=== PATIENT | female | born 1965 | race Caucasian/White ===

== ENCOUNTER 2021-12-23 09:28 | Outpatient (CLI) | payer OTHER, SELFPAY ==
[2021-12-23 14:43] LABS: Chloride* 107 mmol/L (96-114)
[2021-12-23 14:44] LABS: Albumin* 4.5 g/dL (3.3-5.0); Potassium* 4.5 mmol/L (3.6-5.1); Sodium* 141 mmol/L (135-149)
[2021-12-23 14:46] LABS: Carbon Dioxide* 28 mmol/L (20-32); Cholesterol* 250 mg/dL (90-199); Creatinine* 0.8 mg/dL (0.5-1.5); Estimated Glomerular Filt Rate 85 ml/min; Total Protein* 6.7 g/dL (6.0-8.3)
[2021-12-23 14:47] LABS: Alanine Aminotransferase* 14 U/L (4-35); Alkaline Phosphatase* 77 U/L (40-150); Aspartate Amino Transferase* 19 U/L (12-35); Bilirubin Total* 0.9 mg/dL (0.1-1.5); Blood Urea Nitrogen* 12 mg/dL (7-30); Calcium* 9.7 mg/dL (8.4-10.6); Glucose* 95 mg/dL (60-115); Triglycerides* 129 mg/dL (40-149)
[2021-12-23 14:48] LABS: HDL Cholesterol* 60 mg/dL (>=50); LDL Cholesterol Calculated 164 mg/dL (<100)
== END 2021-12-23 09:29 | disposition home or self-care (01) ==
PROVIDERS: PCP Physician Assistant Medical; Visit Provider Physician Assistant Medical
DX: Z00.00 Encounter for general adult medical examination without abnormal findings (principal); I10 Essential (primary) hypertension; Z13.6 Encounter for screening for cardiovascular disorders
CPT/HCPCS: 80053; 80061; 84443; 87086

== ENCOUNTER 2022-04-11 11:48 | Outpatient (CLI) | payer OTHER, SELFPAY | END 2022-04-11 11:49 | disposition home or self-care (01) | PROVIDERS: PCP Physician Assistant Medical; Visit Provider Physician Assistant Medical | DX: E78.5 Hyperlipidemia, unspecified (principal); I10 Essential (primary) hypertension | CPT/HCPCS: 80053; 80061 ==

== ENCOUNTER 2022-04-19 15:54 | Outpatient (CLI) | payer OTHER, SELFPAY ==
--- NOTE | 2022-04-19 16:00 | CRLHL7_ITS ---
For Patients: As a result of the Century Cures Act, medical imaging exams and procedure reports are released immediately into your electronic medical record. You may view this report before your referring provider. If you have questions, please contact your health care provider. INDICATION: Lung cancer screening. History of smoking. High risk patient with greater than 35 pack-year smoking history. TECHNIQUE: Low-dose lung cancer screening non-contrast CT chest. Dose reduction techniques were used. COMPARISON: None. FINDINGS: NODULES: 2 millimeter nodule right upper lobe, . Pleural-based density posterior left upper lobe, 04/27. LUNGS AND PLEURA: Mild scarring in both lung apices extending to the pleura. Paraseptal emphysema. MEDIASTINUM: No adenopathy. CORONARY ARTERY CALCIFICATION: Mild. LIMITED UPPER ABDOMEN: Normal. MUSCULOSKELETAL: Normal. IMPRESSION: Negative for lung cancer screening purposes. LUNG-RADS CATEGORY: 2: Benign. RADIOLOGIST RECOMMENDATION: Continue annual screening with low-dose CT chest in 12 months. Please note that all CT scans at this facility use dose modulation, iterative reconstruction, and/or weight-based dosing when appropriate to reduce radiation dose to as low as reasonably achievable. Dictated by Trenton Ceja MD @ 04/21/2022 12:00:48 PM (Electronically Signed)
== END 2022-04-19 15:55 | disposition home or self-care (01) ==
LOC: CT 15:54
PROVIDERS: PCP Physician Assistant Medical; Visit Provider Physician Assistant Medical
DX: Z12.2 Encounter for screening for malignant neoplasm of respiratory organs (principal); Z72.0 Tobacco use
CPT/HCPCS: 71271

== ENCOUNTER 2023-01-17 18:28 | Emergency (ER) | payer OTHER, SELFPAY ==
[2023-01-17 18:52] VITALS: BP 140/82; PULSE 85; RESP 17; TEMP 37.4; O2SAT 97; BMI 27.9
--- NOTE | 2023-01-17 19:09 | CRLHL7_ITS ---
For Patients: As a result of the Cures Act, medical imaging exams and procedure reports are released immediately into your electronic medical record. You may view this report before your referring provider. If you have questions, please contact your health care provider. Indication: Fall. Technique: Three views of the left wrist. Comparison: None Findings/Impression: Mildly displaced transverse fracture of the distal radial metaphysis, with mild impaction. There is a small displaced osseous fragment dorsally seen on lateral view. There is extension of the fracture into the radiocarpal joint. Possible additional nondisplaced fracture at the mid scaphoid as well. Dictated by Levar Ram MD @ 01/17/2023 7:44:54 PM (Electronically Signed)
--- NOTE | 2023-01-17 19:10 | ED.FALL ---
HPI - Fall General Chief Complaint: Fall/Minor Trauma Stated Complaint: fell, arm pain, abdominal pain Time Seen by Provider: 01/17/23 18:42 History of Present Illness HPI Narrative: This 57-year-old female comes in for evaluation of an injury that occurred a couple hours prior to arrival. She states that she was getting out of a tub and slipped falling onto her left side. She landed on her left forearm and wrist and complains of some pain and swelling in this area. She also has some mild discomfort of her left lower anterior lateral ribs where her arm was tucked in when she fell. She does not report any shortness of breath. She does not have any abdominal pain. She did not hit her head or report any other injury. Related Data Home Medications Medication Instructions Recorded Confirmed calcium carbonate 600 mg-vitamin cap PO 08/26/21 04/11/22 D3 12.5 mcg (500 unit) capsule (Calcium 600 with Vitamin D3) cholecalciferol (vitamin D3) 125 125 mcg PO QDAY 08/26/21 04/11/22 mcg (5,000 unit) capsule Previous Rx's Medication Instructions Recorded lisinopril 10 1 tab PO QDAY #90 tabs 03/25/22 mg-hydrochlorothiazide 12.5 mg tablet atorvastatin 20 mg tablet 20 mg PO QDAY #90 tabs 05/24/22 Allergies Allergy/AdvReac Type Severity Reaction Status Date / Time No Known Drug Allergies Allergy Verified 05/12/22 11:33 Review of Systems Status of ROS: Reports: 10 or more systems reviewed and unremarkable except as noted in History and below Narrative: Constitutional: No fevers, no weight gain or loss. Eyes: No discharge. No vision changes. HENT: No congestion, no sore throat, no ear pain. Cardiovascular: No chest pain, no palpitations. Respiratory: No shortness of breath, no wheezes, no cough. Gastrointestinal: No abdominal pain, no vomiting, no diarrhea. Genitourinary: No dysuria, no hematuria. Musculoskeletal: Left wrist and distal forearm pain as described above. Skin: No rashes, no pruritis. Neurological: No dizziness, weakness, sensory change, speech change. Endo/Heme/Allergies: No bruising or bleeding. No polydipsia. Pysch: no suicidality, no anxiety, no insomnia. All other systems reviewed and are negative. [facility] Medical History (Updated 01/17/23 @ 20:04 by Yandel Ocampo MD) Skin lesion of right ear ?H61.91 - Disorder of right external ear, unspecified (ICD-10) Surgical History (Updated 11/11/21 @ 07:40 by Kelly Escobar) S/P ORIF (open reduction internal fixation) fracture (09/23/20) ?Z98.890 - Other specified postprocedural states (ICD-10) ?Z87.81 - Personal history of (healed) traumatic fracture (ICD-10) History of toe surgery ?Z98.890 - Other specified postprocedural states (ICD-10) History of spinal surgery ?Z98.890 - Other specified postprocedural states (ICD-10) History of hysterectomy ?Z90.710 - Acquired absence of both cervix and uterus (ICD-10) Social History Smoking Status: Current some day smoker Exam Narrative: Exam Narrative: Constitutional: Well-developed, well-nourished, no acute distress. HEENT: Normocephalic, atraumatic. Neck: Normal range of motion. Nontender. Supple. Heart: Regular. No murmurs. Normal rate. Intact distal pulses. Lungs: Clear to auscultation. No wheezes, rhonchi, or rales. Chest: Mild tenderness in the left lateral anterior lower ribs when palpating in this area. Abdomen: Normal bowel sounds. Nontender. No rebound tenderness. No tenderness when palpating over the spleen or when percussing over the left flank where the kidney is. Genitalia: Deferred. Back: No midline tenderness. Normal range of motion. Extremities: Normal range of motion. No injury. Skin: Intact. No rash. Warm. No erythema or pallor. Neurologic: No altered sensation. No weakness. Alert and oriented. Psychiatric: No suicidality. No anxiety or depression. No insomnia. Nursing notes and vitals signs are reviewed. Const: Vital Signs, click to edit/add: Vital Signs - 24 hr 01/17/23 18:52 Temperature 99.3 F Pulse Rate [Pulse Oximeter] 85 Respiratory Rate 17 Blood Pressure [Ri ght Upper Arm] 140/82 H Pulse Oximetry 97 Oxygen Delivery Me thod Room Air Course Vital Signs Vital signs: Initial Vital Signs Temperature 99.3 F 01/17/23 18:52 Temperature Source Temporal Artery Scan 01/17/23 18:52 Pulse Rate 85 01/17/23 18:52 Respiratory Rate 17 01/17/23 18:52 Blood Pressure 140/82 H 01/17/23 18:52 Blood Pressure Mean 101 01/17/23 18:52 Pulse Oximetry 97 01/17/23 18:52 Oxygen Delivery Method Room Air 01/17/23 18:52 Vital Signs Temperature 99.3 F 01/17/23 18:52 Pulse Rate 85 01/17/23 18:52 Respiratory Rate 17 01/17/23 18:52 Blood Pressure 140/82 H 01/17/23 18:52 Pulse Oximetry 97 01/17/23 18:52 Oxygen Delivery Method Room Air 01/17/23 18:52 Temperature 99.3 F 01/17/23 18:52 Pulse Rate 85 01/17/23 18:52 Respiratory Rate 17 01/17/23 18:52 Blood Pressure 140/82 H 01/17/23 18:52 Pulse Oximetry 97 01/17/23 18:52 Oxygen Delivery Method Room Air 01/17/23 18:52 MDM - Fall MDM Narrative Medical decision making narrative: This patient comes in with an injury to her left wrist and also has some pain in the left lower anterior ribs. I did discuss x-ray imaging of her ribs but there is reassurance with a normal abdominal exam and normal vital signs with normal lung sounds. The patient declined to x-ray of her ribs but an x-ray of her left wrist was obtained. This returns if evidence of a distal wrist fracture which is impacted slightly but in good position otherwise. The patient did receive a rib belt and was also placed in a volar splint using Ortho Glass material. She is instructed to follow-up with orthopedic clinic. She did receive a prescription for Toradol through the [employer] machine. Imaging Data XR R Wrist: Radiologist's impression: Mildly displaced transverse fracture of the distal radial metaphysis, with mild impaction. There is a small displaced osseous fragment dorsally seen on lateral view. There is extension of the fracture into the radiocarpal joint. Possible additional nondisplaced fracture at the mid scaphoid as well. Discharge Plan Discharge Clinical Impression: Fracture of wrist, Contusion of rib Patient Disposition: Home, Self-Care Condition: Stable Additional Instructions: Wear rib belt and wrist splint. Follow-up with orthopedic clinic. Call [phone] for appointment. Take medication also as needed and directed for pain. Follow up with MD otherwise as needed. Prescriptions: No Action cholecalciferol (vitamin D3) 125 mcg (5,000 unit) capsule 125 mcg PO QDAY calcium carbonate-vitamin D3 [Calcium 600 with Vitamin D3] 600 mg-12.5 mcg (500 unit) capsule PO lisinopril-hydrochlorothiazide 10-12.5 mg tablet 1 tab PO QDAY Qty: 90 0RF Rx Instructions: once daily for blood pressure atorvastatin 20 mg tablet 20 mg PO QDAY Qty: 90 3RF Rx Instructions: one tablet daily for cholesterol recheck fasting labs in 3 months Follow Up/Referrals: Enid Dallas PA-C [Primary Care Provider] - Stand Alone Forms: [facility] Info Instructions
[2023-01-17 20:08] VITALS: BP 155/80; PULSE 84; RESP 20; O2SAT 95
== END 2023-01-17 20:16 | disposition home or self-care (01) ==
PROVIDERS: Emergency Provider Emergency Medicine Emergency Medical Services; PCP Physician Assistant Medical
DX: S62.102A Fracture of unspecified carpal bone, left wrist, initial encounter for closed fracture (principal); S20.212A Contusion of left front wall of thorax, initial encounter; W19.XXXA Unspecified fall, initial encounter
CPT/HCPCS: 29125; 73110; 99283; 99284

== ENCOUNTER 2023-03-09 09:30 | Outpatient (RCR) | payer OTHER, SELFPAY ==
--- NOTE | 2023-02-23 11:29 | OT.OPOE ---
OT Outpatient Ortho Eval OT Outpatient Ortho Eval* Start: 02/23/23 09:36 Freq: Status: Active Protocol: Document 02/23/23 09:37 JERSON (Rec: 02/23/23 11:25 JERSON [id number]) E-signed By Belén Adame, OTR/L, CLT OT OP Ortho Eval Details Complexity Complexity Low Insurance Information Insurance Information [facility] Outpatient History/Precautions Current Condition/Medical Diagnosis Referring Provider Fabrice Barker PA-C Treatment Diagnosis Stiffness of L wrist/hand & Pain in L wrist Date of Onset 01/17/2023 Other Precautions Short-arm cast removed without complications on 02/21/23. Per provider's note, fracture is healing uneventfully. Some mild impaction, now ulnar neutral. This ulnar neutral position should not affect her in the future with ADLs. While the fracture is still present, it is healing and there is enough stability and bone mineralization in order for patient to transition from cast to wrist brace. She is fitted with Tubigrip and short arm wrist brace. Encouraged to wear this brace for the next 1 month (until the Mar) with all activities; come out of the brace for eating, bathing and sedentary activities. May come out of the brace when performing gentle wrist motion exercises. She should wear the brace during sleep for at least the next 2 weeks (Feb). Would still advise no heavy lifting with the left upper extremity greater than 5 lb. No firm grasping, push, pull. Medical/Functional History Medical History Reviewed Yes Prior Level of Function/Mobility Fully Indep with all self cares and IADLs, works a multimedia production assistant job Social History Current Occupation Works from home: employeer is [employer] Subjective Subjective Subjective I really didn't want to need surgery so I may be babying my hand/wrist slightly I got this wrist brace at my ortho f/u apt with Fabrice on Monday Pain Assessment Pain Present Pain Present Pain Reported Location Left Wrist Description Dull, Achy,Throbbing Intensity 2 Goniometric Comments Goniometric Comments Goniometric Comments L Wrist AROM: Flexion 34?, extension 24?, 65? pronation and supination Hand Pinch/Roll Icer Machine Strength Hand Right Roll Icer Machine Strength Position 1 (lbs) 60 Roll Icer Machine Strength Position 2 (lbs) 65 Lateral Pinch Strength (lbs) 19 Three Point Pinch (lbs) 16 Left Roll Icer Machine Strength Position 1 (lbs) 27 Roll Icer Machine Strength Position 2 (lbs) 35 Lateral Pinch Strength (lbs) 16 Three Point Pinch (lbs) 5 OT Objective Data Observations/Posture/Limb Appearance Objective Observations Firm swelling on the extensor side of the L forearm Sensation Sensation Assessment Summary Comments No reported tingling/numbness/ burning Sensation is intact to light touch, pressure, hot/cold OT Problems Problems Problems Decreased Strength,Decreased Range of Motion,Decreased Dexterity,Pain,Decreased Coordination,Lifting,Gripping, Pinching Other Problems Dressing,Computer Patient Potential Excellent Assessment Assessment Assessment 57-year-old (R hand dominant) female presents to the clinic with referral from Ortho PA after coming out of her short arm cast that was removed at f /u Ortho visit on 02/21/23. Medical dx: S52.502A unspecified fracture of the lower end of the left radius, initial encounter for closed fracture. Chief complaint is stiffness in the forearm, with localized edema present, pain rated at 2/10. Therapist has reviewed x-ray report and provider's note from visit on 02/21/23: COPIED FROM CHART Short-arm cast removed without complications on 02/21/23. Per provider's note, fracture is healing uneventfully. Some mild impaction, now ulnar neutral. This ulnar neutral position should not affect her in the future with ADLs. While the fracture is still present, it is healing and there is enough stability and bone mineralization in order for patient to transition from cast to wrist brace. She is fitted with Tubigrip and short arm wrist brace. Encouraged to wear this brace for the next 1 month (until the Mar) with all activities; come out of the brace for eating, bathing and sedentary activities. May come out of the brace when performing gentle wrist motion exercises. She should wear the brace during sleep for at least the next 2 weeks (Feb). Would still advise no heavy lifting with the left upper extremity greater than 5 lb. No firm grasping, push, pull. Provided patient with a HEP and reviewed Occupational Therapy Treatment Plan - OP Potential Rehabilitation Potential Excellent Barriers Barriers to goal attainment None Noted Set Goals Goals Set with Patient Yes Goals Goals 1. Through activity participation in skilled therapy sessions, and consistency in performing a customized HEP, patient will improve capacity of tendons and muscles to manage load in order to have less pain with ADLs, work, leisure activities and IADLs. 2. Patient will wean from wearing the Left hand/wrist braces as prescribed by PA/ Ortho Team as scheduled w/o increased pain levels in the L hand/wrist. 3. Patient will increase L hand riprap man strength from 27 lbs to >40 lbs in order to return to everyday tasks w/o fear of dropping items 4. Patient will gain AROM in the L wrist (EVAL L Wrist AROM : Flexion 34?, extension 24?, 65? pronation and supination. Target Date 8 weeks Treatment Plan Treatment Plan Evaluation,Edema Control,Joint Mobilization,Manual Therapy, Ultrasound,Therapeutic Exercise,Self Care/Home Management,Education Expected Frequency 1-2x Week Expected Duration 8-10 Weeks Home Program Home Program Home Program Initiated Home Program Specifics Tendon Glides AROM of the hand/wrist/forearm and elbow Recertification Information Recertification Information Initial Certification Date 02/23/23 Recertification Due Date 05/24/23 Click To Default 'Per treatment plan' Per treatment plan Continued Plan of Care and Interventions Per treatment plan Provider Signature Shows Agreement With POC & Medical Necessity Physician Comment/Change Comment or Changes Physician NPI Number #
== END 2023-03-09 10:16 | disposition home or self-care (01) ==
PROVIDERS: PCP Physician Assistant Medical; Visit Provider Physician Assistant Surgical
DX: S52.502A Unspecified fracture of the lower end of left radius, initial encounter for closed fracture (principal); M25.632 Stiffness of left wrist, not elsewhere classified; M25.532 Pain in left wrist; Z51.89 Encounter for other specified aftercare
CPT/HCPCS: 97110; 97165; X5282

== ENCOUNTER 2023-04-24 10:47 | Outpatient (CLI) | payer OTHER, SELFPAY ==
--- NOTE | 2023-04-24 11:00 | CT_ITS ---
Patient: LEVY CASAS Facility:?[facility] Patient ID:?[id number] Site Patient ID:?[id number]. Site :?[id number] Study:?CT-Chest LUNG SCREENING LOW DOSE-04/24/2023 11:02:39 AM Ordering Physician:Jose Chacko Final Report: INDICATION: Lung cancer screening. History of smoking. High risk patient with greater than 20 pack-year smoking history. TECHNIQUE: Low-dose lung cancer screening non-contrast CT chest. Dose reduction techniques were used. COMPARISON: 04/19/2022 FINDINGS: NODULES: Stable tiny subpleural nodular densities associated with the fissures. LUNGS AND PLEURA: Emphysema. Subpleural scarring at both lung apices. MEDIASTINUM: The thyroid is heterogeneous, as before. Mild vascular calcifications. No adenopathy. CORONARY ARTERY CALCIFICATION: Mild. LIMITED UPPER ABDOMEN: Unremarkable. MUSCULOSKELETAL: Normal. IMPRESSION: Negative for lung cancer screening purposes. LUNG-RADS CATEGORY: 2: Benign. RADIOLOGIST RECOMMENDATION: Continue annual screening with low-dose CT chest in 12 months. Please note that all CT scans at this facility use dose modulation, iterative reconstruction, and/or weight-based dosing when appropriate to reduce radiation dose to as low as reasonably achievable. Dictated by Trenton Ceja MD @ 04/24/2023 11:23:28 AM Signed by:?Trenton Ceja MD @04/24/2023 11:23:28 AM (Electronic Signature)
== END 2023-04-24 10:48 | disposition home or self-care (01) ==
LOC: CT 10:48
PROVIDERS: PCP Physician Assistant Medical; Visit Provider Physician Assistant Medical
DX: Z12.2 Encounter for screening for malignant neoplasm of respiratory organs (principal); Z72.0 Tobacco use
CPT/HCPCS: 71271

== ENCOUNTER 2023-07-12 08:49 | Outpatient (CLI) | payer OTHER, SELFPAY | END 2023-07-12 08:50 | disposition home or self-care (01) | LOC: NFLDREF 07-16 11:06 | PROVIDERS: PCP Physician Assistant Medical; Referring Provider Physician Assistant Medical; Visit Provider Physician Assistant Medical | DX: E78.5 Hyperlipidemia, unspecified (principal); I10 Essential (primary) hypertension; M35.3 Polymyalgia rheumatica; Z13.29 Encounter for screening for other suspected endocrine disorder | CPT/HCPCS: 80053; 80061; 84443 ==

== ENCOUNTER 2024-01-05 08:28 | Outpatient (CLI) | payer OTHER, SELFPAY ==
[2024-01-05 11:43] LABS: Bacterial Vaginosis* Negative (Negative); Candida glab/krus NOT DETECTED (No Detected); Candida species NOT DETECTED (No Detected); Trichomonas vaginalis NOT DETECTED (No Detected)
== END 2024-01-05 08:29 | disposition home or self-care (01) ==
PROVIDERS: PCP Physician Assistant Medical; Visit Provider Obstetrics & Gynecology
DX: N89.8 Other specified noninflammatory disorders of vagina (principal)
CPT/HCPCS: 81513; 87481; 87661

== ENCOUNTER 2024-04-15 11:36 | Outpatient (CLI) | payer OTHER, SELFPAY ==
[2024-04-15 19:58] LABS: Chlamydia DNA Amplified* NOT DETECTED (No Detected); GC DNA Amplified* NOT DETECTED (No Detected)
[2024-04-18 09:39] LABS: HPV Source Cervix; HPV, High Risk by TMA Not Detected
== END 2024-04-15 11:37 | disposition home or self-care (01) ==
PROVIDERS: PCP Physician Assistant Medical; Visit Provider Physician Assistant Medical
DX: N39.0 Urinary tract infection, site not specified (principal); N88.9 Noninflammatory disorder of cervix uteri, unspecified; Z11.3 Encounter for screening for infections with a predominantly sexual mode of transmission; Z11.51 Encounter for screening for human papillomavirus (HPV); Z12.4 Encounter for screening for malignant neoplasm of cervix; B96.1 Klebsiella pneumoniae [K. pneumoniae] as the cause of diseases classified elsewhere
CPT/HCPCS: 87086; 87491; 87591; 87624; 87625; 88141; 88142

== ENCOUNTER 2024-04-17 13:46 | Outpatient (CLI) | payer OTHER, SELFPAY ==
--- NOTE | 2024-04-17 14:00 | CRLHL7_ITS ---
For Patients: As a result of the Century Cures Act, medical imaging exams and procedure reports are released immediately into your electronic medical record. You may view this report before your referring provider. If you have questions, please contact your health care provider. INDICATION: Vaginal bleeding COMPARISON: none TECHNIQUE: 2D lance scale and color Doppler images were acquired of the pelvis using a transabdominal and transvaginal approach. FINDINGS: The uterus is absent. Hyperechoic structure associated with the cervix measuring 5 millimeters. The right ovary measures 3.0 x 1.5 x 2.3 cm in size and the left ovary measures 2.5 x 1.4 x 1.5 cm. The ovaries demonstrate normal arterial and venous blood flow on color Doppler analysis. There are no suspicious fluid collections within the cul-de-sac. Incidental calcification left ovary measures 6 x 3 x 8 millimeters. IMPRESSION: Indeterminate 5 millimeter hyperechoic structure associated with the cervix, possible polyp. Dictated by Trenton Ceja MD @ 04/17/2024 5:58:13 PM (Electronically Signed)
== END 2024-04-17 13:47 | disposition home or self-care (01) ==
LOC: US 13:46
PROVIDERS: PCP Physician Assistant Medical; Visit Provider Physician Assistant Medical
DX: N93.9 Abnormal uterine and vaginal bleeding, unspecified (principal); N88.9 Noninflammatory disorder of cervix uteri, unspecified
CPT/HCPCS: 76830; 76856

== ENCOUNTER 2024-07-02 09:11 | Outpatient (CLI) | payer OTHER, SELFPAY | END 2024-07-02 09:12 | disposition home or self-care (01) | LOC: NFLDREF 07-09 07:10 | PROVIDERS: PCP Physician Assistant Medical; Referring Provider Physician Assistant Medical; Visit Provider Physician Assistant Medical | DX: Z01.818 Encounter for other preprocedural examination (principal); I10 Essential (primary) hypertension; E78.5 Hyperlipidemia, unspecified; R82.90 Unspecified abnormal findings in urine | CPT/HCPCS: 80053; 80061; 87086 ==

== ENCOUNTER 2024-07-05 07:29 | Day surgery (SDC) | payer OTHER, SELFPAY ==
[2024-07-05] VITALS (23 sets, daily range): BP systolic 117–163; BP diastolic 59–97; PULSE 62–98; RESP 12–21; TEMP 36.1–37.2; O2SAT 87–100; BMI 35.5
[2024-07-05] MEDS: LACTATED RINGERS 1000 ML 1,000 ML 100 ML IV ×2 (08:12→10:29)
[2024-07-05] MEDS: SODIUM CHLORIDE 0.9 % (FLUSH) 10 ML SYRINGE IVF (08:12)
[2024-07-05 08:13] LABS: Hemoglobin* 14.5 gm/dL (12.0-16.0)
[2024-07-05 08:38] LABS: Creatinine* 0.9 mg/dL (0.5-1.5); Est. Creatinine Clearance* 57.45; Estimated Glomerular Filt Rate 73 ml/min
--- NOTE | 2024-07-05 08:53 | W.PM.H&PU ---
History & Physical Update History & Physical Update H&P Updates: Patient had a wonderful time in [facility] for her 40th anniversary. Started on Lisinopril at her preop visit. Improvement in BP noted. We reviewed intended procedure, risk/benefits and alternatives. Our main goal is the removal of her cervix as it is causing her abnormal bleeding. My goal is to complete the surgery vaginally. However, she might require a laparoscopic or open approach depending on how much adhesions her noted. Will perform opportunistic bilateral salpingo oophorectomy if feasible and safe or if structures are abnormal appearing. She understands that that I will not convert to laparoscopic or open to perform these. Patient verbalized that is her preference as well. All questions answered to her satisfaction and the best of my ability. Desires to proceed with surgical management.
[2024-07-05] MEDS: CEFAZOLIN 2 GM INJ IVP (09:36)
[2024-07-05] MEDS: LIDOCAINE 1%-EPI 1:100,000 20 ML INFILTRATI (10:10)
[2024-07-05] MEDS: KETOROLAC 30 MG/ML inj IVP (10:39)
--- NOTE | 2024-07-05 10:52 | P.ANES_ITS ---
Anesthesia Charges Start Date/Time Anesthesia Start Date: 07/05/24 Anesthesia Start Time: 09:07 Stop Date/Time Anesthesia Stop Date: 07/05/24 Anesthesia Stop Time: 10:52 Coding CPT Codes CPT Codes: ANESTH VAGINAL PROCEDURES - 45910 ([id number]) P2 - PATIENT W/MILD SYST DISEASE, QK - WAREHOUSE TRAINER 2-4 CNCRNT ANES PROC, QX - EQUINE SCIENCE INSTRUCTOR SVC W/ MD MED DIRECTION
--- NOTE | 2024-07-05 10:52 | W.ANESCHARGE ---
Anesthesia Charges Start Date/Time Anesthesia Start Date: 07/05/24 Anesthesia Start Time: 09:07 Stop Date/Time Anesthesia Stop Date: 07/05/24 Anesthesia Stop Time: 10:52 Coding CPT Codes CPT Codes: ANESTH VAGINAL PROCEDURES - 60913 ([id number]) P2 - PATIENT W/MILD SYST DISEASE, QK - SURVEILLANCE SPECIALIST 2-4 CNCRNT ANES PROC, QX - FELTING MACHINE OPERATOR SVC W/ MD MED DIRECTION
--- NOTE | 2024-07-05 11:20 | P.ANES_ITS ---
Anesthesia Charges Start Date/Time Anesthesia Start Date: 07/05/24 Anesthesia Start Time: 09:07 Stop Date/Time Anesthesia Stop Date: 07/05/24 Anesthesia Stop Time: 10:52 Coding CPT Codes CPT Codes: ANESTH VAGINAL PROCEDURES - 30070 ([id number]) P2 - PATIENT W/MILD SYST DISEASE, QK - GUIDEMAN 2-4 CNCRNT ANES PROC, QX - RELIEF MAP MODELER SVC W/ MD MED DIRECTION
--- NOTE | 2024-07-05 11:20 | W.ANESCHARGE ---
Anesthesia Charges Start Date/Time Anesthesia Start Date: 07/05/24 Anesthesia Start Time: 09:07 Stop Date/Time Anesthesia Stop Date: 07/05/24 Anesthesia Stop Time: 10:52 Coding CPT Codes CPT Codes: ANESTH VAGINAL PROCEDURES - 42162 ([id number]) P2 - PATIENT W/MILD SYST DISEASE, QK - INDUSTRIAL HEALTH ENGINEER 2-4 CNCRNT ANES PROC, QX - ROLLER MAN SVC W/ MD MED DIRECTION
--- NOTE | 2024-07-05 11:23 | PM.GYNPRHY ---
Procedure Type of Hysterectomy: Vaginal Pre-op/Post-op diagnoses: Pre-Op/Post-Op Diagnoses Operation Date: 07/05/24 08:45 <No data on this case meets the specified criteria> Procedure: Procedures Operation Date: 07/05/24 08:45 Actual Procedure Side Surgeon p M/S-Vaginal Trachelectomy, Cystoscopy Not Applicable Freya Fuentes MD Fleet Technician: Denise Rodriguez Estimated blood loss (mL): 20 Anesthesia Type: General and Local Complications: none Fluids: crystalloid Fluid amount (mL): 1,400 Urine output (mL): 20 Specimen: other (Cervix) Narrative: PREOPERATIVE DIAGNOSIS: Abnormal vaginal bleeding with history of supracervical hysterectomy POSTOPERATIVE DIAGNOSIS: Abnormal vaginal bleeding with history of supracervical hysterectomy NAME OF PROCEDURE: Vaginal trachelectomy, cystoscopy SURGEON: Freya Fuentes MD LEGAL CONTRACTS SPECIALIST: Denise Rodriguez MD SECOND PATIENT SERVICE REPRESENTATIVE: DMITRI Don ANESTHESIA: General endotracheal, local. COMPLICATIONS: None ESTIMATED BLOOD LOSS: 20 mL IV FLUID: 1400 mL URINE OUTPUT: 550 mL clear urine at the end of the procedure DRAINS: Martinez to gravity. SPECIMEN: Cervix FINDINGS: Exam under anesthesia: Mons normal, clitoris normal, urethral meatus normal. Labia minora and majora normal in appearance bilaterally. Perineum and anus normal appearance. Vaginal introitus normal appearance and of small caliper. Vaginal pink with mild atrophy and scant white discharge. Cervix pink and without lesion. Bimanual exam reveals small retained cervix, mobile. No palpable adnexal masses, although exam limited due to habitus. Rectal exam was normal and confirmed contour of the cervix. Mild adhesions of epiploica to anterior cervix and feel teetered to anterior abdominal wall. Cystoscopy: The dome of the bladder was noted to be without defect and no evidence of any sutures from the vaginal cuff causing injury. Ecchymosis noted at midline - no suture material noted, not active bleeding or defect. Normal urine flow was noted through both ureteral orifices. PROCEDURE: Patient was taken to the operating room with IV running. She received 2 g cefazolin in preoperative prophylaxis. She was positioned on the operating table in dorsal lithotomy position. She was prepped and draped in the usual sterile fashion. Martinez catheter was inserted. Exam under anesthesia revealed the above-noted findings. The anterior and posterior lips of the cervix were grasped with thyroid liliam. The cervicovaginal junction was infiltrated with dilute 1%lidocaine with epinephrine. Cervicovaginal junction was circumferentially incised with a scalpel. The vaginal epithelium was dissected off the uterosacral ligaments with a combination of blunt and sharp dissection bilaterally. Posterior colpotomy was performed sharply and a long weighted speculum was placed in the cul-de-sac. No adhesions noted in the posterior cul-de-sac. Small amount of filmy omental adhesions palpated anteriorly. Released easily with blunt dissection. I was able to wrap a digit around anteriorly to creat a plan for anterior colpotomy. The anterior colpotomy was performed by making an incision with electrocautery on my digit. A Reform was placed between the uterus and bladder. Ureter palpated long pelvic sideway and away from descending cervix. Bilateral uterosacral ligaments were clamped, cut, and suture ligated 0-vicryl, and tagged for later identification. This freed the cervix from its attachments and it was delivered through the vagina. Bilateral ovary and fallopian tubes were visualized higher up intra-abdominally. All normal appearing with surrounding mild adhesions to the pelvic side wall. Discussed with patient pre-operative that I would only removal her fallopian tubes and ovaries if readily accessible or if they appear abnormal. Thus, decision was made to leave bilateral fallopian tubes and ovaries. Hemostasis confirmed at bilateral pedicles. Attention was then turned to closing the vaginal cuff. The vaginal cuff was re-approximated using 0 Vicryl sutures in a figure of X manner vertically. The uterosacral pedicles were incorporated into each apex of the vaginal cuff. Excellent hemostasis was noted. The Martinez catheter was briefly removed. A diagnostic cystoscopy was performed using normal saline as the insufflation medium. Findings noted from above. Fluorescein IV was given intraoperatively to visualize the urine more easily. Martinez catheter was then replaced to be retained until removal on POD#1. The procedure was deemed complete, and the Martinez catheter was replaced. The patient tolerated the procedure well. Sponge, lap and instrument counts were correct x2 at the end of the procedure. The patient was taken to recovery area in stable condition Surgical debrief performed and specimen reviewed.
[2024-07-05] MEDS: IBUPROFEN 600 MG TABLET PO ×2 (15:59→22:36)
--- NOTE | 2024-07-05 18:16 | PC.NURSE ---
Addendum entered by Wander Malone RN 07/06/24 07:42: Martinez pulled 1900 on 07/05 Original Note: Patient arrived to the floor from post-op tired and sedated. Vitals have been being taken per protocol. Low oxygenation at start. Raising the head of their bed and frequent spirometer use has helped. Reports no pain, numbness, or tingling. Able to move legs weakly at first arrival. After an hour on the unit she awoke into her normal self and was able to move fully. Now able to drink and eat well and ambulate to the toilet with stand by assistance. ?Martinez in place producing clear yellow urine. Staying overnight.?
[2024-07-05] MEDS: OXYCODONE 5 MG TABLET PO (23:49)
[2024-07-06] MEDS: oxyBUTYnin chloride 5 MG TABLET 10 MG PO (01:06)
[2024-07-06 02:29] VITALS: BP 153/76; PULSE 84; RESP 17; TEMP 37; O2SAT 93
[2024-07-06] MEDS: OXYCODONE 5 MG TABLET PO (04:21)
[2024-07-06] MEDS: IBUPROFEN 600 MG TABLET PO ×2 (04:21→10:03)
[2024-07-06 06:22] LABS: Hemoglobin* 12.6 gm/dL (12.0-16.0)
[2024-07-06 06:40] LABS: Creatinine* 0.9 mg/dL (0.5-1.5); Est. Creatinine Clearance* 57.45; Estimated Glomerular Filt Rate 73 ml/min
--- NOTE | 2024-07-06 07:41 | PC.NURSE ---
Per previous nurse the hagen was removed at change of this shift. Patient was bladder scanned at 2300 as she had not voided since that time. Pt had 210mL of urine in bladder per scanner. Patient?voided 75mL at 2330.?Pt reported pain rated 6/10 and describes it as an intense feeling like she has to pee. She reports that she was having this pain earlier when catheter was in and had requested it be removed due to the discomfort as she thought it would relieve it. Dr Nicole called and updated regarding urine output and pain. Pt given a one time dose of Oxybutynin 10mg and hagen catheter placed at that time per MD orders. 275cc of clear yellow urine was drained at time of insertion.?No change in pain intensity after insertion.?C/O discomfort with catheter insertion. Given scheduled Ibuprofen and PRN Oxycodone this shift for pain. Had a small emesis. Reports this am that her nausea is better and rates pain 5/10.?
[2024-07-06 08:00] VITALS: PULSE 91; RESP 16
[2024-07-06 08:05] VITALS: BP 131/63; PULSE 91; RESP 16; TEMP 36.9; O2SAT 92
--- NOTE | 2024-07-06 09:43 | P.DS_ITS ---
DS: Providers Provider Time Seen by Provider: 09:30 Date Seen: 07/06/24 Primary care physician: Charlene Chacko PA-C Attending Physician on discharge: Freya Fuentes MD Date of Discharge: 07/06/24 DS: Diagnosis Discharge Diagnosis (1) Postmenopausal bleeding: Status: Acute (2) Cervical polyp: Status: Acute (3) Lesion of cervix: Status: Acute Problem details: ~ 3 o'clock position ( thickening on exam), easily bleeds REGIONAL OPERATIONS DIRECTOR-Discharge Summary Hospital Course Hospital Course Narrative: Patient is a 59 year old admitted on 07/05/24 for scheduled surgery. Vaginal Trachelectomy, Cystoscopy Indication for surgery: Continue abnormal bleeding s/p supracervical hysterectomy. Intraoperative findings: Exam under anesthesia: Mons normal, clitoris normal, urethral meatus normal. Labia minora and majora normal in appearance bilaterally. Perineum and anus norm al appearance. Vaginal introitus normal appearance and of small caliper. Vaginal pink with mild atrophy and scant white discharge. Cervix pink and without lesion. Bimanual exam reveals small retained cervix, mobile. No palpable adnexal masses, although exam limited due to habitus. Rectal exam was normal and confirmed contour of the cervix. Mild adhesions of epiploica to anterior cervix and feel teetered to anterior abdominal wall. Normal appearing bilateral fallopian tubes and ovaries. Cystoscopy: The dome of the bladder was noted to be without defect and no evidence of any sutures from the vaginal cuff causing injury. Ecchymosis noted at midline - no suture material noted, not active bleeding or defect. Normal urine flow was noted through both ureteral orifices. She had an uncomplicated surgery. Patient had an episode of bladder spasm last and urinary retention last night that was treated with Oxybutynin 10mg and martinez catheter reinsertion. She woke up this morning with complete resolution of bladder pain. She passed her voiding trial by voiding 300 cc completely. Denies any hematuria or dysuria. UOP adequate and clear all night. Martinez cath remained removed. Vitals have been stable. She has remained afebrile. Today, on postoperative day 1, she reports the pain is well controlled. Currently 0/10. She has been able to ambulate Without difficulty. She is bill ating regular diet. She is passing flatus. Still having liquid stool from bowel prep. Reports light vaginal bleeding last night and thing this morning. Time Spent with Patient Time attestation: Total time spent providing and/or coordinating discharge services: Time spent: Less than 30 minutes REGIONAL OPERATIONS DIRECTOR - Exam Physical Exam: Vital signs: Temp Pulse Resp BP Pulse Ox O2 Del Method O2 Flow Rate 98.4 F 91 16 131/63 92 Room Air 6 07/06/24 08:05 07/06/24 08:05 07/06/24 08:05 07/06/24 08:05 07/06/24 08:05 07/06/24 08:05 07/05/24 11:30 Narrative: Physical exam: General: No acute distress Psych: Alert and oriented x4, full affect HEENT: Normocephalic, atraumatic Heart: Regular rate and rhythm, no murmur rub or gallop Lungs: Clear to auscultation bilaterally Abdomen: Soft, no tenderness, rebound, or guarding Lower extremities: No edema or erythema Pelvic exam: No blood on pad REGIONAL OPERATIONS DIRECTOR - DS: Data Data Completed and Pending Labs on day of discharge: Labs from last 24 hours 07/06/24 07/05/24 05:58 08:06 Hgb 12.6 Creatinine 0.9 Estimated Creat Clear 57.45 Estimated GFR 73 Blood Type O Positive Antibody Screen NEGATIVE Procedures Procedures: Procedures Operation Date: 07/05/24 08:45 Actual Procedure Side Surgeon p M/S-Vaginal Trachelectomy, Cystoscopy Not Applicable Freya Fuentes MD Complications: none Discharge Plan Discharge Disposition: Home w/ Parent or Adult Discharging Surgeon: Freya Fuentes Follow-Up Appointment: With Dr. Fuentes on 07/19/24 @ 1330 Prescriptions: New acetaminophen 500 mg Tablet 1,000 mg PO Q6H PRN30 Days Qty: 30 0RF ibuprofen 600 mg Tablet 600 mg PO Q6H PRN (Reason: Abdominal Pain) 30 Days Qty: 30 0RF oxycodone 5 mg tablet 5 mg PO Q6H PRN (Reason: pain) Qty: 10 0RF Continued cholecalciferol (vitamin D3) 125 mcg (5,000 unit) capsule 125 mcg PO DAILY calcium carbonate-vitamin D3 [Calcium 600 with Vitamin D3] 600 mg-12.5 mcg (500 unit) capsule 1 cap PO DAILY prednisone 5 mg tablet 5 mg PO DAILY Actemra 162 mg/0.9 mL syringe 162 mg subcut Q7D atorvastatin 20 mg tablet 20 mg PO DAILY Rx Instructions: one tablet daily for cholesterol lisinopril 10 mg tablet 10 mg PO DAILY Patient Instructions: Acetaminophen (By mouth), Ibuprofen (By mouth), Oxycodone, Slow Release (By mouth) Additional Instructions: POSTOPERATIVE INSTRUCTIONS ACTIVITY Walking is encouraged, even if it is just short distances. Try to walk up to 6 times during the day. You may climb stairs as tolerated, but not for exercise. If you have a lengthy trip home after surgery, for 5 minutes or so every hour. To not participate strenuous activities, such as aerobic exercise. No heavy lifting/pushing/pulling for 4-6 weeks. Do not lift anything more than about 15 lbs (such as laundry, groceries, children, pets), vacuum, push heavy doors or grocery carts, etc. Do not put anything in the vagina for 6-8 weeks after surgery unless otherwise instructed by your doctor (including tampons, douching, sexual intercourse, etc). No driving for about 2 weeks after surgery, while you are taking narcotic pain medication, or until you feel that you are ready. Practice checking your blind spot and stepping hard on the brake. Avoid sitting or lying in bed for more than 2 hours at a time while you are awake to reduce your risk of blood clots. You may return to work when directed by your physician. Please contact your doctor if you need any return to work letters or medical leave paperwork to be completed. WOUND CARE You have a vaginal incision inside your vagina. These are dissolvable stitches and do not need to be removed. Shower daily after surgery. No tub baths until wound is completely healed. Do not use hot tub, whirlpool or go swimming unless otherwise instructed by your health care provider. PAIN MANAGEMENT Take your oral pain medication as needed. You should be taking Ibuprofen 600mg every 6 hours with 1000 mg of Tylenol every 6 hours. You can take these together every six hours or alternate them every 3 hours. You should then take the oxycodone as needed if you have breakthrough pain on top of the Tylenol and Ibuprofen. Some pain medications can cause constipation so you should take a stool softener (i.e. colace/senna) while you are on these medications. You may also take milk of magnesia or Miralax for constipation. AP take narcotic medications for pain, do not: Obiee Report Developer operate motorized vehicles/equipment, drink alcoholic beverages, make important decision or sign legal documents. WHAT TO EXPECT AT HOME Recovery from surgery is generally 2-4 weeks, but sometimes longer for more strenuous activity. It is normal to be very tired during this time. It is normal to have some drainage or a small amount of vaginal bleeding after surgery which may last up to 8 weeks. You will most likely experience gas pain, abdominal swelling, or shoulder pain for 24-72 hours after surgery. A warm shower, heating pad, and/or walking may help. WHEN TO CALL YOUR DOCTOR : Fever (>100.4?F or 38.0?C) or chills. Incision problems such as redness, warmth, swelling, or foul-smelling drainage. Severe nausea or persistent vomiting. Bright red vaginal bleeding (soaking >2 pad/hour) or foul-smelling vaginal drainage. Severe pain not relieved with pain medication. Pain and swelling in your legs, especially if it is only on one side and not the other. Pain with urination, cloudy urine, or foul-smelling urine. Or if you have any other problems or questions. CALL 911 OR GO TO THE EMERGENCY ROOM IF YOU HAVE: Any shortness of breath, difficulty breathing, or chest pain. Follow-up: Charlene Chacko PA-C [Primary Care Provider, Family Practice] Freya Fuentes MD [Staff Physician, SIGNAL TECHNICIAN] - 07/19/24 1:30 pm Referral Note: [facility] for hospital follow-up. Discharge Orders: Discharge Order (Routine); Ordered 07/06/24 Ordered By: Freya Fuentes
--- NOTE | 2024-07-06 10:57 | PC.NURSE ---
Patient alert and oriented and vitally stable upon initial morning assessment. Hagen was in place producing clear yellow urine. The patient reported a cramping sensation of the lower abdomen that was relieved after reinsertion of hagen catheter last night. No nausea or emesis on this shift. Appears independent of strength. Stand by assist for safety. An order for a void trial was received and carried out. Hagen was used to insert 300 ml of distilled irrigation fluid into bladder and the hagen removed. The patient was able to void all the fluid immediately after catheter removal into the room?s toilet without strain. No bleeding or spotting from vagina this morning. Frequency of stool. The patient reports liquid stool she believes she is experiencing as a continuation of a very recent bowel prep. Approved for discharge in the mid morning.?Left the floor ambulatory to meet by the ER entrance at 10:50. All belongings were taken by the patient. IV removed. Education given via discharge packet. The patient appeared well and in a good state of health at the time of their leaving. ?
== END 2024-07-06 10:50 | disposition home or self-care (01) ==
LOC: OR 07:30 → MEDSURG 07:32
PROVIDERS: PCP Physician Assistant Medical; Visit Provider Obstetrics & Gynecology
PROC: (CPT 57530; principal; 2024-07-05 08:45)
DX: N93.8 Other specified abnormal uterine and vaginal bleeding (principal); N84.1 Polyp of cervix uteri; N88.9 Noninflammatory disorder of cervix uteri, unspecified; E89.41 Symptomatic postprocedural ovarian failure; Z90.711 Acquired absence of uterus with remaining cervical stump; I10 Essential (primary) hypertension
CPT/HCPCS: 57530; 00940; 36415; 51798; 82565; 85018; 86850; 86900; 86901; 88307; A4314; A9270; J0690; J1171; J1720; J1885; J2405; J2704; J2710; J3010; J7120

== ENCOUNTER 2024-08-25 10:00 | Outpatient (CLI) | payer OTHER, SELFPAY | END 2024-08-25 10:01 | disposition home or self-care (01) | LOC: NFLDREF 23:48 | PROVIDERS: PCP Physician Assistant Medical; Referring Provider Physician Assistant Medical; Visit Provider Nurse Practitioner Family | DX: N30.00 Acute cystitis without hematuria (principal); B96.89 Other specified bacterial agents as the cause of diseases classified elsewhere | CPT/HCPCS: 87086 ==

== ENCOUNTER 2024-11-11 13:40 | Outpatient (CLI) | payer OTHER, SELFPAY ==
[2024-11-11 23:17] LABS: Chlamydia DNA Amplified* NOT DETECTED (No Detected); GC DNA Amplified* NOT DETECTED (No Detected)
== END 2024-11-11 13:41 | disposition home or self-care (01) ==
LOC: LKVREF 13:40
PROVIDERS: PCP Physician Assistant Medical; Visit Provider Physician Assistant Medical
DX: Z12.4 Encounter for screening for malignant neoplasm of cervix (principal)
CPT/HCPCS: 87491; 87591